=== PATIENT | female | born 1955 | race Caucasian/White ===

== ENCOUNTER 2018-05-09 13:02 | Day surgery (SDC) | payer OTHER ==
[2018-05-09] MEDS ORDERED: PROPOFOL 40 ML (15:27)
== END 2018-05-09 17:07 | disposition home or self-care (01) ==
LOC: GIL 13:02
DX: K21.0 Gastro-esophageal reflux disease with esophagitis (principal); I10 Essential (primary) hypertension; E78.5 Hyperlipidemia, unspecified; E11.9 Type 2 diabetes mellitus without complications
CPT/HCPCS: 43239; 82962; 88305; 88312; 88313